=== PATIENT | male | born 1955 | race Caucasian/White ===

== ENCOUNTER 2020-07-05 10:14 | Outpatient (CLI) | payer OTHER, SELFPAY ==
--- NOTE | ~2020-07-05 | XR_ITS ---
XR chest 2V DATE: 07/05/2020 10:34 INDICATION: Cough TECHNIQUE: PA and lateral views COMPARISON: 06/30/2013 2 view chest FINDINGS: There is chronic mild elevation left leaf of diaphragm and chronic scarring in the left low er lung. No pulmonary infiltrate or consolidation, pleural effusion or pulmonary vascular congestion or pneumo thorax. Normal heart size. No hilar or mediastinal enlargement. IMPRESSION: Chronic scarring in the left lower lung; no active cardiopulmonary disease or significant change since 06/30/2013 Reviewed, dictated and finalized at location A.
== END 2020-07-05 10:15 | disposition home or self-care (01) ==
LOC: ANHIMG 10:17
PROVIDERS: PCP Internal Medicine; Visit Provider Internal Medicine
DX: R05 Cough (principal); R91.8 Other nonspecific abnormal finding of lung field
CPT/HCPCS: 71046

== ENCOUNTER 2020-07-19 01:58 | Emergency (ER) | payer OTHER, SELFPAY ==
--- NOTE | ~2020-07-19 | XR_ITS ---
EXAMINATION: XR hip RT 2V w AP pelvis INDICATION: Right hip pain TECHNIQUE: AP view the pelvis and two views of the right hip are obtained. COMPARISON: 10/28/2012 FINDINGS: Bone alignment is normal. There is no fracture. Unchanged mild osteoarthritis of the hips. Again noted is cystic change at the right femoral head/neck junction which could be related to femoro -acetabular impingement. The soft tissues are unremarkable. IMPRESSION: 1. No acute osseous abnormality. Reviewed, dictated and finalized at location A.
[2020-07-19 02:04] VITALS: BP 114/92; PULSE 73; RESP 18; TEMP 36.7; O2SAT 99
--- NOTE | 2020-07-19 02:12 | PC.NURSE ---
Pt presents to ED with complaints of right hip pain that onset approx one hour ago after work. Pt denies hx of, surgery, fall or injury and states he does a lot of walking and standing at work. Pain is rated 10/10 at this time and pt states he treated with 600mg ibuprofen approx one hour ago with no relief. Pt states right hip is approx one inch shorter than usual. Pt alert and oriented x4 and vitals are stable and in no obvious distress at this time. Pt resting comfortably on cart in its lowest position with call button and personal items within reach. Pt advised to press call button for assistance.
--- NOTE | 2020-07-19 02:18 | ED.EXTPRO ---
HPI - Extremity Problem General Chief complaint: Extremity Problem,Nontraumatic Stated complaint: hip pain Time Seen by Provider: 07/19/20 02:17 History of Present Illness HPI Narrative: RIght lower back and hip pain for awhile. Seen by chiropractor recently and had x-rays down. He was told that his hip had dropped. He has been taking ibuprofen without relief. He has another appointment with the chiropractor today but he says that he is not sure if he will make it. Related Data Allergies Allergy/AdvReac Type Severity Reaction Status Date / Time morphine Allergy Severe vitals Verified 07/05/20 09:36 spiked Review of Systems Review of Systems: All systems reviewed & are unremarkable except as noted in HPI and below Constitutional: Constitutional: Denies chills and Denies fever(s) Cardiovascular: Cardiovascular: Denies chest pain Respiratory: Respiratory: Denies dyspnea Gastrointestinal: Gastrointestinal: Denies nausea and Denies vomiting Musculoskeletal: Musculoskeletal: Reports no additional musculoskeletal complaints Neurologic: Denies dizziness and Denies weakness PMFSH Family History Family History Father Patient's father is Family history of lung cancer, Onset Age: 72 Other Hypertension Social History Social History Smoking status: Current every day smoker Tobacco type: cigarettes Second hand tobacco smoke exposure: No Smoking end date: 02/25/14 Alcohol intake: current Substance use: never Gender identity (if verbalized by the patient): Male Exam Const: General: no acute distress and alert Nutritional Appearance: well nourished Orientation/consciousness: patient oriented x3 HENMT: Head: normal to inspection Neck: Neck: normal visual inspection Resp: Effort & Inspection: normal respiratory effort Auscultation: clear to auscultation bilaterally Cardio: Rate: regular rate Rhythm: regular rhythm GI: GI Palp: Yes Soft to palpation, No Tenderness to palpation present (GI) and No Guarding due to palpation present (GI) Skin: General skin exam: normal color Neuro: General: patient oriented x3, moves all extremities, no focal motor deficits and CN's II-XI intact bilaterally Speech: normal speech Extrem: General: normal to inspection Other: mild tenderness over right SI joint Course Vital Signs Vital signs: Vital Signs Temperature 36.7 C 07/19/20 02:04 Pulse Rate 73 07/19/20 02:04 Respiratory Rate 18 07/19/20 02:04 Blood Pressure 114/92 H 07/19/20 02:04 Pulse Oximetry 99 07/19/20 02:04 Temperature 36.7 C 07/19/20 02:04 Pulse Rate 73 07/19/20 05:35 Respiratory Rate 20 07/19/20 05:35 Blood Pressure 130/68 07/19/20 05:35 Pulse Oximetry 98 07/19/20 05:35 MDM - Extremity (Nontraumatic) MDM Narrative Medical decision making narrative: sciatica, arthritis Imaging Data Radiologist's impression: ITS Impressions Hip/Pelvis X-Ray 07/19/20 06:53 IMPRESSION: 1. No acute osseous abnormality. Discharge Plan Discharge Clinical Impression: Hip pain, right Patient Disposition: Home, Self-Care Condition: Stable Instructions: Hip Pain (ED) Prescriptions: New cyclobenzaprine 10 mg tablet 10 mg PO TID PRN (Reason: muscle spasm) Qty: 20 RF: 0 No Action lisinopril 10 mg tablet 10 mg PO DAILY Qty: 90 RF: 3 magnesium oxide [MagOx] 400 mg (241.3 mg magnesium) tablet 400 mg PO BID Qty: 180 RF: 3 omeprazole 20 mg tablet,delayed release (DR/EC) 20 mg PO DAILY Qty: 90 RF: 3 Follow-up/Referrals: Gene Paul DO [Primary Care Provider] -
--- NOTE | 2020-07-19 02:28 | PC.NURSE ---
Pt adds that he recently had an xray of his right hip done and pcp states extremity is now shorter than its original position
[2020-07-19] MEDS: diazePAM INJ (*CRX) 10 MG/2 ML SYRINGE 5 MG IM (02:47)
--- NOTE | 2020-07-19 02:55 | PC.NURSE ---
pt states he will call a ride home since being administered narcotic and if he cannot find a ride, pt is ok with waiting the alotted time before dc. Pt resting on cart in its lowest position with call button and personal items within reach. Vitals are stable and pt in no obvious distress. Pt provided a blanket and advised to press call button for assistance.
[2020-07-19 02:58] VITALS: BP 130/72; PULSE 75; RESP 18; O2SAT 98
--- NOTE | 2020-07-19 03:40 | PC.NURSE ---
pt complains that medication did not provide any relief and is requesting pain medication. EDMD notified and states he will place orders.
[2020-07-19] MEDS: HYDROcodone/acetaminophen (*CRX) 5-325 MG TABLET 1 TAB PO (03:51)
--- NOTE | 2020-07-19 04:01 | PC.NURSE ---
Pt to and from radiology via cart and is now back in room with call button and personal items within reach. Pt advised to press call button for assistance.
[2020-07-19 04:50] VITALS: BP 119/72; PULSE 73; RESP 18; O2SAT 98
--- NOTE | 2020-07-19 04:52 | PC.NURSE ---
pt able to manipulate himself in bed without as much difficulty as he had prior to medication administration. Pt states is rated 8/10 at this time. EDMD notified.
[2020-07-19] MEDS: DEXAMETHASONE SOD PHOS INJ 4 MG/ML VIAL 10 MG IM (05:23)
[2020-07-19 05:35] VITALS: BP 130/68; PULSE 73; RESP 20; O2SAT 98
== END 2020-07-19 05:36 | disposition home or self-care (01) ==
PROVIDERS: Emergency Provider Emergency Medicine; PCP Internal Medicine
DX: M25.551 Pain in right hip (principal); F17.210 Nicotine dependence, cigarettes, uncomplicated
CPT/HCPCS: 73502; 96372; 99284; A9270; J1100; J3360

== ENCOUNTER 2021-07-16 02:14 | Emergency (ER) | payer OTHER, SELFPAY ==
--- NOTE | ~2021-07-16 | XR_ITS ---
EXAMINATION: XR chest 2V DATE: 07/16/2021 03:25 INDICATION: Cough. Right-sided chest pain. TECHNIQUE: PA and lateral views of the chest were obtained. COMPARISON: Chest radiograph dated 07/05/2020 and 12/21/2009 FINDINGS: Volume loss in the left hemidiaphragm with blunting at the left costophrenic angle and posterior sulc us. Additional chronic mild linear atelectasis/scarring at the lateral left lower lung zone. Remainde r of the lungs are clear with no other airspace opacities, pulmonary edema, pleural effusion or pneum othorax. The cardiomediastinal silhouette is normal. Mild thoracic spondylosis with no change in information assurance specialist mitchell mild anterior wedging of a couple mid thoracic vertebral bodies. IMPRESSION: 1. Chronic volume loss and atelectasis/scarring at the left lung base. No acute cardiopulmonary disea se. Reviewed, dictated and finalized at location A. IMPRESSION: 1. Chronic volume loss and atelectasis/scarring at the left lung base. No acute cardiopulmonary disease.
[2021-07-16 02:16] VITALS: BP 157/98; PULSE 86; RESP 20; TEMP 36.2; O2SAT 99
--- NOTE | 2021-07-16 02:27 | ECG_ITS ---
Measurements Intervals [place] Rate: 71 P: 46 TN: 174 QRS: -12 QRSD: 97 T: 31 QT: 365 QTc: 399 Interpretive Statements SINUS RHYTHM CONSIDER ANTERIOR INFARCT, AGE INDETERMINATE BASELINE WANDER- I, II, III, V1 ABNORMAL ECG Electronically Signed On 07-16-2021 7:55:54 CDT by Brian Burk D.O.
[2021-07-16 02:48] VITALS: PULSE 81; O2SAT 96
[2021-07-16] MEDS: SODIUM CHLORIDE 0.9% IV 500 ML 999 ML IV CONT (02:57)
--- NOTE | 2021-07-16 03:02 | ED.GENADULT ---
HPI - General Adult General Chief complaint: Unspecified Stated complaint: cough, painful breathing rt side Time Seen by Provider: 07/16/21 02:23 Source: patient History of Present Illness HPI narrative: Patient presents with right-sided chest pain. Patient ports he had cough congestion for the past few days but now he developed right-sided chest pain particularly when he coughs. Concerned maybe he is developing a lung infection so he wanted to come to the ER for further evaluation. Pain is sharp present when he coughs, no radiation. He has not noted any fevers at home also reports a sore throat and mild shortness of breath. Denies any nausea vomiting or diaphoresis denies any lightheadedness or dizziness. Related Data Allergies Allergy/AdvReac Type Severity Reaction Status Date / Time morphine Allergy Severe vitals Verified 07/16/21 02:18 spiked Review of Systems Review of Systems: CONSTITUTIONAL: Denies fever, chills, or sweats. EYES: Denies visual changes, redness, or discharge. ENT: Denies rhinorrhea, congestion, sore throat, or otalgia. CARDIOVASCULAR: Denies palpitations, or edema. RESPIRATORY: Cough and shortness of breath GASTROINTESTINAL: Denies abdominal pain, nausea, vomiting, or diarrhea. GENITOURINARY: Denies dysuria or hematuria. SKIN: Denies rash or itching. MUSCULOSKELETAL: Denies back pain, joint pain, or myalgia. NEUROLOGIC: Denies headache, numbness, dizziness, or weakness. PSYCHIATRIC: Denies anxiety or depression. All systems reviewed & are unremarkable except as noted in HPI and below PMFSH Family History Family History Father Patient's father is Family history of lung cancer, Onset Age: 72 Other Hypertension Social History Social History Smoking status: Current every day smoker Tobacco type: cigarettes Second hand tobacco smoke exposure: No Smoking end date: 02/25/14 Alcohol intake: current Substance use: never Gender identity (if verbalized by the patient): Male Exam Narrative: GENERAL: Well-appearing, well-nourished, and in no acute distress. HEAD: Normocephalic, atraumatic. EYES: PERRLA and EOMI. ENT: Nares clear, no rhinorrhea or epistaxis. Mucous membranes moist. NECK: Supple. No masses. No JVD CHEST: Clear to auscultation. No respiratory distress. Mild diffuse rhonchi HEART: Regular rate and rhythm. No murmur heard. Normal peripheral pulses. ABDOMEN: Soft, nontender, nondistended, normal active bowel sounds. EXTREMITIES: Normal range of motion. No edema. SKIN: Warm, dry, no rash. NEURO: No focal deficits. Alert and oriented x3. PSYCH: Normal mood and affect. Course Reevaluation(s) Reevaluation #1: Patient resting comfortably results and plan reviewed with patient. Patient is comfortable outpatient plan. Date: 07/16/21 Time: 03:59 Vital Signs Vital signs: Vital Signs Temperature 36.2 C L 07/16/21 02:16 Pulse Rate 86 07/16/21 02:16 Respiratory Rate 20 07/16/21 02:16 Blood Pressure 157/98 H 07/16/21 02:16 Pulse Oximetry 99 07/16/21 02:16 Temperature 36.2 C L 07/16/21 02:16 Pulse Rate 80 07/16/21 04:23 Respiratory Rate 18 07/16/21 04:23 Blood Pressure 140/77 07/16/21 04:23 Pulse Oximetry 98 07/16/21 04:23 Medical Decision Making [facility] Narrative Medical decision making narrative: H&P as above, vss, pt looks clinically well, exam with mild diffuse rhonchi, labs with patient being fluid positive otherwise clinically unremarkable, img without acute process, additional labs/img considered, symptomatic relief available as needed, on reevaluation pt continues to looks clinically well. Suspect influenza, dns severe sepsis consider dehydration, hypoxia, pneumothorax, hemothorax. plan to tx/monitor as op w/ pcm f/u findings/plan discussed with pt, pt agree/comfortable with plan, return precautions give
[2021-07-16 03:09] LABS: Basophils Percent Auto 0.6 % (0.2-1.2); Eosinophils Absolute Auto 0.1 K/mm3 (0-0.3); Eosinophils Percent Auto 2.1 % (0-4.4); Hematocrit 42.9 % (42.0-52.0); Hemoglobin 14.3 g/dL (14.0-18.0); Immature Granulocyte Absolute 0.02 K/mm3 (0.00-0.031); Immature Granulocyte Percent A 0.4 % (0-0.5); Lymphocytes Absolute Auto 0.86 K/mm3 (0.9-3.2); Lymphocytes Percent Auto 17.8 % (18.3-44.2); Mean Corpuscular HGB Conc 33.3 g/dl (32-36); Mean Corpuscular Hemoglobin 31.4 pg (26-34); Mean Corpuscular Volume 94.3 fl (80-100); Mean Platelet Volume 11.4 fl (7.4-10.4); Monocytes Absolute Auto 0.5 K/mm3 (0.1-0.6); Monocytes Percent Auto 11.2 % (2.6-8.5); Neutrophils Absolute Auto 3.3 K/mm3 (1.3-6.7); Neutrophils Percent Auto 67.9 % (45.5-73.1); Platelet Count Result 143 k/mm3 (150-375); Red Blood Count 4.55 M/mm3 (4.6-6.20); Red Cell Distribution Width 12.9 % (11.5-14.5); White Blood Count 4.8 K/mm3 (4.5-10.0)
[2021-07-16 03:13] LABS: Lactic Acid Reflex 0.5 mmol/L (0.7-2.0)
[2021-07-16 03:14] LABS: Alanine Aminotransferase 23 U/L (6-50); Albumin Level 3.6 g/dL (3.5-5.1); Alkaline Phosphatase 69 U/L (38-126); Anion Gap 6 mmol/L (8-16); Aspartate Amino Transferase 30 U/L (17-59); Bilirubin,Total 0.3 mg/dL (0.2-1.3); Blood Urea Nitrogen 11 mg/dL (9-20); Carbon Dioxide 26 mmol/L (22-30); Chloride 108 mmol/L (98-107); Estimated Glomerular Filt Rate > 60; Glucose 108 mg/dL (65-110); Potassium 3.4 mmol/L (3.4-5.0); Sodium 140 mmol/L (137-145)
[2021-07-16 03:42] LABS: Influenza A QL RT-PCR Positive (Negative); Influenza B QL RT-PCR Negative (Negative); SARS-CoV-2 RNA PCR Negative
[2021-07-16 04:23] VITALS: BP 140/77; PULSE 80; RESP 18; O2SAT 98
== END 2021-07-16 04:26 | disposition home or self-care (01) ==
PROVIDERS: Emergency Provider Emergency Medicine; PCP Internal Medicine
DX: J11.1 Influenza due to unidentified influenza virus with other respiratory manifestations (principal); F17.200 Nicotine dependence, unspecified, uncomplicated; Z20.822 Contact with and (suspected) exposure to COVID-19
CPT/HCPCS: 36415; 71046; 80053; 83605; 85025; 87502; 93005; 96360; 99283; C9803; J7040; U0003; U0005

== ENCOUNTER 2022-11-13 12:17 | Outpatient (CLI) | payer MEDICARE, SELFPAY ==
--- NOTE | ~2022-11-13 | CT_ITS ---
CT ANGIOGRAM NECK AND HEAD History: Dizziness and giddiness. Technique: Axial noncontrast imaging of the brain was performed. Serial spiral axial images through t he head and neck were then obtained during arterial phase IV injection of 100 cc of Omnipaque 350. 3- D postprocessing and MIP images were then reconstructed on the remote workstation. Dose reduction oz hnique was used on this scan by utilizing automated exposure control and iterative reconstruction oz hnique. The dose-length product (DLP) was 1623.36 mGy-cm. CTA neck findings: Bilateral vertebral arteries are patent. Bilateral common carotid, internal carot id, external carotid arteries are patent. No large vessel occlusion. No aneurysm. No stenosis seen, d espite presence of a small mixed soft and calcified plaque at the proximal left internal carotid cooper ry. The proximal right internal carotid artery demonstrates 0% stenosis relative to the normal distal artery lumen diameter. The proximal left internal carotid artery demonstrates 0% stenosis relative t o the normal distal artery lumen diameter. CTA head findings: Distal vertebral arteries, basilar artery, and posterior cerebral arteries are pat ent. Right posterior cerebral artery is predominantly supplied via right posterior communicating cooper ry. Distal internal carotid arteries, middle cerebral arteries, and anterior cerebral arteries are pa tent. No large vessel occlusion. No stenosis or aneurysm identified. Axial noncontrast imaging of the brain demonstrates no significant abnormality. There is no acute inf arct, intracranial hemorrhage, or mass lesion identified. Ventricles and subarachnoid spaces are unre markable. Woods-white differentiation is preserved. Paranasal sinuses and mastoid air cells are clear. Impression: No significant abnormality seen. Reviewed, dictated and finalized at location . Impression: No significant abnormality seen.
[2022-11-13 12:45] LABS: Estimated Glomerular Filt Rate > 60
== END 2022-11-13 12:18 | disposition home or self-care (01) ==
PROVIDERS: PCP Internal Medicine; Visit Provider Physician Assistant
DX: R42 Dizziness and giddiness (principal); R51.9 Headache, unspecified; R55 Syncope and collapse
CPT/HCPCS: 70496; 70498; Q9967

== ENCOUNTER 2023-05-03 09:44 | Outpatient (CLI) | payer MEDICARE, SELFPAY ==
[2023-05-03 10:43] LABS: Basophils Absolute Auto 0.1 K/mm3 (0.0-0.1); Eosinophils Absolute Auto 0.1 K/mm3 (0-0.3); Eosinophils Percent Auto 2.3 % (0-4.4); Hematocrit 48.1 % (42.0-52.0); Hemoglobin 15.7 g/dL (14.0-18.0); Immature Granulocyte Absolute 0.02 K/mm3 (0.00-0.031); Immature Granulocyte Percent A 0.3 % (0-0.5); Lymphocytes Absolute Auto 1.77 K/mm3 (0.9-3.2); Lymphocytes Percent Auto 28.5 % (18.3-44.2); Mean Corpuscular HGB Conc 32.6 g/dl (32-36); Mean Corpuscular Hemoglobin 30.6 pg (26-34); Mean Corpuscular Volume 93.8 fl (80-100); Mean Platelet Volume 11.9 fl (7.4-10.4); Monocytes Absolute Auto 0.6 K/mm3 (0.1-0.6); Monocytes Percent Auto 9.5 % (2.6-8.5); Neutrophils Absolute Auto 3.6 K/mm3 (1.3-6.7); Neutrophils Percent Auto 58.4 % (45.5-73.1); Platelet Count Result 221 k/mm3 (150-375); Red Blood Count 5.13 M/mm3 (4.6-6.20); Red Cell Distribution Width 13.2 % (11.5-14.5); White Blood Count 6.2 K/mm3 (4.5-10.0)
[2023-05-03 11:04] LABS: Alanine Aminotransferase 38 U/L (6-50); Albumin Level 4.2 g/dL (3.5-5.1); Alkaline Phosphatase 79 U/L (38-126); Anion Gap 5 mmol/L (8-16); Aspartate Amino Transferase 32 U/L (17-59); Bilirubin,Total 0.6 mg/dL (0.2-1.3); Blood Urea Nitrogen 17 mg/dL (9-20); Calcium 9.3 mg/dL (8.4-10.2); Carbon Dioxide 30 mmol/L (22-30); Chloride 104 mmol/L (98-107); Cholesterol 223 mg/dL (0-200); Estimated Glomerular Filt Rate > 60; Glucose 115 mg/dL (65-110); HDL Direct 46 mg/dL; Magnesium 2.1 mg/dL (1.6-2.3); Potassium 4.1 mmol/L (3.4-5.0); Sodium 139 mmol/L (137-145); Triglycerides 114 mg/dL (<150)
[2023-05-03 11:23] LABS: LDL Cholesterol Direct 153 mg/dL
[2023-05-03 11:46] LABS: Thyroid Stimulating Hormone 0.733 uIU/mL (0.465-4.680)
== END 2023-05-03 09:45 | disposition home or self-care (01) ==
LOC: ANHLAB 09:52
PROVIDERS: PCP Internal Medicine; Visit Provider Internal Medicine
DX: E78.00 Pure hypercholesterolemia, unspecified (principal); R73.9 Hyperglycemia, unspecified; I10 Essential (primary) hypertension; R53.83 Other fatigue; Z12.5 Encounter for screening for malignant neoplasm of prostate
CPT/HCPCS: 36415; 80053; 80061; 83735; 84153; 84443; 85025; G0103

== ENCOUNTER 2023-07-04 08:01 | Outpatient (CLI) | payer MEDICARE, SELFPAY ==
--- NOTE | ~2023-07-04 | CT_ITS ---
Non-contrast CT scan of the Abdomen and Pelvis Clinical indication: Benign prostatic hyperplasia Technique: 2.5 mm axial scans were obtained through the abdomen and pelvis without intravenous or or al contrast. Dose reduction technique was used on this scan by utilizing automated exposure control a nd iterative reconstruction technique. The dose-length product (DLP) was 710.85 mGy-cm. Findings: Images through the lung bases reveal no abnormalities. 3 mm nonobstructing right renal stone present. 11 mm nonobstructing left lower pole renal stone prese nt. There is an additional 2 mm nonobstructing left midpole renal stone. No ureteral stone or hydrone phrosis on either side. The liver, spleen, pancreas, gallbladder, and adrenals appear normal. There are atherosclerotic calci fications of the aorta. There is no evidence of bowel obstruction. Images through the pelvis were performed. There is no evidence of ascites or lymphadenopathy. Small a mount of air present in the urinary bladder. No pelvic mass seen. Prostate gland may be minimally enl arged. Impression: Nonobstructing nephrolithiasis, as above. Small amount of air in urinary bladder. Correlate for iatrogenic air. Minimally enlarged prostate gland. Reviewed, dictated and finalized at [facility]. Impression: Nonobstructing nephrolithiasis, as above. Small amount of air in urinary bladder. Correlate for iatrogenic air. Minimally enlarged prostate gland.
== END 2023-07-04 08:02 | disposition home or self-care (01) ==
LOC: ANHIMG 08:04
PROVIDERS: PCP Internal Medicine; Visit Provider Urology
DX: N40.0 Benign prostatic hyperplasia without lower urinary tract symptoms (principal)
CPT/HCPCS: 74176

== ENCOUNTER 2023-11-27 08:50 | Outpatient (CLI) | payer MEDICARE, SELFPAY ==
[2023-11-27 10:13] LABS: Free T4 Free Thyroxine 0.92 ng/mL (0.78-2.19); Thyroid Stimulating Hormone 0.929 uIU/mL (0.465-4.680)
[2023-11-27 10:48] LABS: Folic Acid 8.7 ng/mL (2.76->20)
== END 2023-11-27 08:51 | disposition home or self-care (01) ==
PROVIDERS: PCP Internal Medicine; Visit Provider Internal Medicine
DX: R41.3 Other amnesia (principal); E03.9 Hypothyroidism, unspecified
CPT/HCPCS: 36415; 82607; 82746; 84439; 84443

== ENCOUNTER 2023-12-09 13:39 | Outpatient (CLI) | payer MEDICARE, SELFPAY ==
--- NOTE | ~2023-12-09 | CT_ITS ---
EXAMINATION:CT lung screening DATE: 12/09/2023 14:07 INDICATION: Nicotine dependence, cigarettes, uncomplicated.. Current smoker with 40 pack year history . TECHNIQUE: Computed tomography (CT) of the chest was performed without intravenous contrast. Automate d exposure control and iterative reconstruction technique were employed. The dose-length product (DLP ) was 191.71 mGy-cm. COMPARISON: Chest CT 10/29/2012 FINDINGS: There is mild atelectasis in left lung. No pleural effusion. The heart size is normal. Ther e are coronary artery calcifications. There are calcifications of the aortic valve. No pericardial ef fusion. There are 2 stones in left kidney measuring up to 8 mm. There is a 3 mm stone in right kidney . There is severe cervical spondylosis and mild thoracic spondylosis. There is mild chronic anterior wedging of multiple thoracic vertebral bodies. IMPRESSION: 1. Lung-RADS category 1: Negative. Continue annual screening with noncontrast low-dose chest CT in 12 months. Reviewed, dictated and finalized at location A. IMPRESSION: 1. Lung-RADS category 1: Negative. Continue annual screening with noncontrast l ow-dose chest CT in 12 months.
== END 2023-12-09 13:40 | disposition home or self-care (01) ==
PROVIDERS: PCP Internal Medicine; Visit Provider Internal Medicine
DX: Z12.2 Encounter for screening for malignant neoplasm of respiratory organs (principal); F17.210 Nicotine dependence, cigarettes, uncomplicated
CPT/HCPCS: 71271

== ENCOUNTER 2023-12-17 09:20 | Outpatient (CLI) | payer MEDICARE, SELFPAY ==
--- NOTE | ~2023-12-17 | XR_ITS ---
EXAMINATION: XR UGI w barium swallow DATE: 12/17/2023 09:54 INDICATION: Epigastric abdominal pain. TECHNIQUE: The patient drank thick barium, gas-producing crystals, and thin barium. Fluoroscopy of th e esophagus, stomach, and proximal small bowel was performed. Fluoroscopy exposure time was 0.7 minut es. The total number of images was 244. Total dose-area product was 2.45 Gy-cm^2. COMPARISON: CT abdomen and pelvis 07/04/2023 FINDINGS: There is no mass or stricture of the esophagus. Esophageal motility is normal. There is no hiatal hernia. There was no gastroesophageal reflux with provocative maneuvers. The stomach and proxi mal small bowel show normal folding patterns. IMPRESSION: 1. Normal upper gastrointestinal series. Reviewed, dictated and finalized at location A.
== END 2023-12-17 09:21 | disposition home or self-care (01) ==
LOC: ANHIMG 09:21
PROVIDERS: PCP Internal Medicine; Visit Provider Internal Medicine
DX: R10.13 Epigastric pain (principal)
CPT/HCPCS: 74240

== ENCOUNTER 2023-12-27 09:51 | Outpatient (CLI) | payer MEDICARE, SELFPAY ==
--- NOTE | ~2023-12-27 | US_ITS ---
Limited Abdominal Sonogram: Real-time sonographic imaging of the right upper quadrant was performed. Clinical History: Right upper quadrant pain Findings: The liver appears echogenic, with no evidence of mass lesion or bile duct dilatation. Main portal vein demonstrates normal direction of flow. The gallbladder is well distended, and appears no rmal with no evidence of gallstone or wall thickening. The common bile duct measures 5 mm. The visua lized pancreas, aorta, and IVC are unremarkable. Right kidney measures 12.2 cm in length, without hyd ronephrosis or renal stone. Impression: Diffuse fatty infiltration of the liver. Reviewed, dictated and finalized at location M. Impression: Diffuse fatty infiltration of the liver.
== END 2023-12-27 09:52 | disposition home or self-care (01) ==
PROVIDERS: PCP Internal Medicine; Visit Provider Internal Medicine
DX: R10.11 Right upper quadrant pain (principal); K76.0 Fatty (change of) liver, not elsewhere classified
CPT/HCPCS: 76705

== ENCOUNTER 2024-03-27 11:27 | Outpatient (CLI) | payer MEDICARE, SELFPAY ==
--- NOTE | ~2024-03-27 | XR_ITS ---
EXAMINATION: XR shoulder RT min 2V DATE: 03/27/2024 11:50 INDICATION: Right shoulder pain. TECHNIQUE: 4 views of right shoulder were obtained. COMPARISON: None. FINDINGS: Bone alignment is normal. There is deformity of distal clavicle, which may be from prior tr auma or surgery. There is mild osteoarthritis of the acromioclavicular joint. There is heterotopic os sification at the acromioclavicular joint. Glenohumeral joint is normal. IMPRESSION: 1. Mild acromioclavicular joint osteoarthritis. Reviewed, dictated and finalized at location A. STRAIGHTENER
== END 2024-03-27 11:28 | disposition home or self-care (01) ==
PROVIDERS: PCP Internal Medicine; Visit Provider Internal Medicine
DX: M19.011 Primary osteoarthritis, right shoulder (principal)
CPT/HCPCS: 73030

== ENCOUNTER 2024-03-31 07:27 | Emergency (ER) | payer MEDICARE, SELFPAY ==
[2024-03-31] VITALS (7 sets, daily range): BP systolic 90–154; BP diastolic 47–84; PULSE 61–85; RESP 14–20; TEMP 36.6; O2SAT 98–100
--- NOTE | ~2024-03-31 | XR_ITS ---
EXAMINATION: XR chest 2V DATE: 03/31/2024 08:02 INDICATION: Chest pain. TECHNIQUE: Frontal and lateral views of the chest were obtained. COMPARISON: Chest 2 views 07/16/2021, chest CT 12/09/2023 FINDINGS: There is mild atelectasis in left lower lung zone. There is prominent extrapleural flat in the left costophrenic angles. No pleural effusion or pneumothorax. The heart size is normal. There is mild chronic anterior wedging of multiple thoracic vertebral bodies. IMPRESSION: 1. Mild atelectasis in left lower lung zone. Reviewed, dictated and finalized at location A. [employer] [facility]
--- NOTE | 2024-03-31 07:35 | ECG_ITS ---
Test Date: 2024-03-31 07:37:33 Measurements Intervals [place] Rate: 75 P: 56 RI: 176 QRS: -17 QRSD: 105 T: 59 QT: 381 QTc: 425 Interpretive Statements SINUS RHYTHM VOLTAGE CRITERIA FOR LVH BORDERLINE ST ABNORMALITY- LATERAL LEADS BASELINE ARTIFACT- I, II, III, V1-V4 BORDERLINE ECG No previous ECG available for comparison Electronically Signed On 03-31-2024 07:52:50 REEL SLITTER by Brian Burk D.O.
[2024-03-31 07:53] LABS: Basophils Percent Auto 0.4 % (0.2-1.2); Eosinophils Percent Auto 0.4 % (0-4.4); Hematocrit 45.8 % (42.0-52.0); Hemoglobin 15.9 g/dL (14.0-18.0); Immature Granulocyte Absolute 0.08 K/mm3 (0.00-0.031); Immature Granulocyte Percent A 0.8 % (0-0.5); Lymphocytes Absolute Auto 3.06 K/mm3 (0.9-3.2); Lymphocytes Percent Auto 32.2 % (18.3-44.2); Mean Corpuscular HGB Conc 34.7 g/dl (32-36); Mean Corpuscular Hemoglobin 31.4 pg (26-34); Mean Corpuscular Volume 90.5 fl (80-100); Monocytes Absolute Auto 0.8 K/mm3 (0.1-0.6); Neutrophils Absolute Auto 5.5 K/mm3 (1.3-6.7); Neutrophils Percent Auto 58.2 % (45.5-73.1); Platelet Count Result 220 k/mm3 (150-375); Red Blood Count 5.06 M/mm3 (4.6-6.20); Red Cell Distribution Width 12.7 % (11.5-14.5); White Blood Count 9.5 K/mm3 (4.5-10.0)
[2024-03-31 08:12] LABS: Alanine Aminotransferase 24 U/L (6-50); Albumin Level 3.9 g/dL (3.5-5.1); Alkaline Phosphatase 100 U/L (38-126); Anion Gap 7 mmol/L (4-12); Aspartate Amino Transferase 19 U/L (17-59); Bilirubin,Total 0.5 mg/dL (0.2-1.3); Blood Urea Nitrogen 21 mg/dL (9-20); Calcium 9.2 mg/dL (8.4-10.2); Carbon Dioxide 27 mmol/L (22-30); Chloride 105 mmol/L (98-107); Estimated CRCL calculation 95 ml/min; Estimated Glomerular Filt Rate > 60; Glucose 117 mg/dL (65-110); Lipase 76 U/L (23-300); Potassium 3.4 mmol/L (3.4-5.0); Sodium 139 mmol/L (137-145)
[2024-03-31] MEDS: ASPIRIN 81 MG CHEWABLE TABLET 324 MG PO (08:22)
[2024-03-31 08:23] LABS: Troponin I < 0.012 ng/mL (0.000-0.034)
[2024-03-31] MEDS: NITROGLYCERIN SL 0.4 MG TABLET SUBLINGUAL (08:23)
[2024-03-31 08:31] LABS: INR 0.9; Prothrombin Time 12.9 Seconds (11.1-14.7)
[2024-03-31 08:32] LABS: Partial Thromboplastin Time 26.2 Seconds (22.3-36.8)
--- NOTE | 2024-03-31 08:34 | PC.NURSE ---
gave pt a total of 2, 0.4mg tablets of nitroglycerin. pt's bp 90/47 after the 2nd tablet. withheld 3rd tablet. pt reports it did not help with chest pain. made aware.
[2024-03-31] MEDS: SODIUM CHLORIDE 0.9% IV 1,000 ML 999 ML IV CONT (08:42)
[2024-03-31] MEDS: fentaNYL CITRATE INJ (*CRX) 100 MCG/2 ML VIAL 50 MCG IV PUSH (09:03)
[2024-03-31 09:27] LABS: D Dimer < 0.27 ug/mL (<0.48)
--- NOTE | 2024-03-31 10:29 | ECG_ITS ---
Test Date: 2024-03-31 10:50:02 Measurements Intervals [place] Rate: 58 P: 52 MD: 181 QRS: -8 QRSD: 113 T: 35 QT: 425 QTc: 418 Interpretive Statements SINUS BRADYCARDIA VOLTAGE CRITERIA FOR LVH CANNOT R/O SEPTAL INFARCT, AGE INDETERMINATE ABNORMAL ECG Compared to ECG 03/31/2024 07:37:33 HEART RATE HAS DECREASED Electronically Signed On 03-31-2024 10:56:31 LOSS PREVENTION AGENT by Brian Burk D.O.
--- NOTE | 2024-03-31 11:55 | PC.NURSE ---
Lab called by CIRO Reed to add on 3 hour troponin to blood tube sent down at 3 hour richard.
[2024-03-31 12:18] LABS: Troponin I < 0.012 ng/mL (0.000-0.034)
--- NOTE | 2024-03-31 12:34 | ED_ITS ---
HPI - Chest Pain General Chief Complaint: Chest Pain Stated Complaint: chest pain Time Seen by Provider: 03/31/24 08:11 Source: patient Mode of arrival: ambulatory Limitations: no limitations History of Present Illness HPI narrative: 68-year-old with a history of hypertension no other complaints of chest pain which started yesterday. Patient states that pain is mostly in the mid chest area nonradiating. Denies any shortness of breath, nausea or diaphoresis with the pain. No previous history of CAD. Patient states if he puts his hand on his chest he feels better patient states that he had a stress test done several years ago which was normal today complaint: chest pain Onset (ago): day(s) (1) Timing of current episode: constant Onset: during rest Pain location: substernal Pain radiation: none Severity: moderate Quality: aching and heaviness Relieving factors: nothing Exacerbating factors: nothing Treatment prior to arrival: none Risk Factors Coronary artery disease risk factors: hypertension Thoracic aortic dissection risk factors: none Related Data Allergies Allergy/AdvReac Type Severity Reaction Status Date / Time morphine Allergy Severe vitals Verified 03/31/24 07:39 spiked Review of Systems 2 Review of Systems: All systems reviewed & are unremarkable except as noted in HPI and below Constitutional: Constitutional: Reports no additional constitutional complaints Eyes: Eyes: Reports no additional eye complaints ENT: Reports system reviewed and no additional complaints, except as documented Cardiovascular: Cardiovascular: Reports as per HPI Respiratory: Respiratory: Reports no additional respiratory complaints Gastrointestinal: Gastrointestinal: Reports no additional gastrointestinal complaints Musculoskeletal: Musculoskeletal: Reports no additional musculoskeletal complaints [facility] Family History Family History Father Patient's father is Family history of lung cancer, Onset Age: 72 Other Hypertension Social History Social History Smoking status: Current every day smoker Tobacco type: cigarettes Second hand tobacco smoke exposure: No Smoking end date: 02/25/14 Alcohol intake: current Substance use: never Current Housing: Decline to Answer Concerned About Future Housing: Decline to Answer Difficulty Paying Gas/Electric Bills: Decline to Answer Difficulty Paying for Meds: Decline to Answer Currently Unemployed: Decline to Answer Education: Decline to Answer Difficulty w/ Childcare or Family Care: Decline to Answer Gender identity (if verbalized by the patient): Male Exam 2 Narrative: GENERAL: Well-appearing, well-nourished, and in no acute distress. HEAD: Normocephalic, atraumatic. EYES: PERRLA and EOMI. ENT: Nares clear, no rhinorrhea or epistaxis. Mucous membranes moist. NECK: Supple. CHEST: Clear to auscultation. No respiratory distress. HEART: Regular rate and rhythm. No murmur heard. Normal peripheral pulses. ABDOMEN: Soft, nontender, nondistended, normal active bowel sounds. EXTREMITIES: Normal range of motion. No edema. SKIN: Warm, dry, no rash. NEURO: No focal deficits. Alert and oriented x3. PSYCH: Normal mood and affect. Course Course Emergency Course: Patient had no relief with sublingual nitro. I did give him IV final which is the pain of. He remained pain-free mom while he was here in the ER. I did inform him about his lab work, EKG findings. Discussed with his primary doctor will schedule outpatient stress test Vital Signs Vital signs: Vital Signs Temperature 36.6 C 03/31/24 07:32 Pulse Rate 85 03/31/24 07:32 Respiratory Rate 20 03/31/24 07:32 Blood Pressure 154/84 H 03/31/24 07:32 Pulse Oximetry 100 03/31/24 07:32 Oxygen Delivery Room Air 03/31/24 07:32 Temperature 36.6 C 03/31/24 07:32 Pulse Rate 62 03/31/24 11:00 Respiratory Rate 14 03/31/24 11:00 Blood Pressure 122/75 03/31/24 11:00 Pulse Oximetry 100 03/31/24 11:00 Oxygen Delivery Room Air 03/31/24 11:15 MDM - Chest Pain Differential Diagnosis Differential diagnosis: Likely stable angina, unstable angina pectoris, atypical chest pain and costochondritis Medical Records Data Attestation: I reviewed the patient's medical records. Lab Data Attestation: I reviewed the patient's lab results. 03/31/24 07:46 03/31/24 07:46 Labs: Lab Results 03/31/24 03/31/24 03/31/24 Range/Units 07:46 08:53 10:24 WBC 9.5 (4.5-10.0) K/mm3 RBC 5.06 (4.6-6.20) M/mm3 Hgb 15.9 (14.0-18.0) g/dL Hct 45.8 (42.0-52.0) % MCV 90.5 (80-100) fl MCH 31.4 (26-34) pg MCHC 34.7 (32-36) g/dl RDW 12.7 (11.5-14.5) % Plt Count 220 (150-375) k/mm3 MPV 11.0 H (7.4-10.4) fl Immature Gran % (Auto) 0.8 H (0-0.5) % Neut % (Auto) 58.2 (45.5-73.1) % Lymph % (Auto) 32.2 (18.3-44.2) % [place] % (Auto) 8.0 (2.6-8.5) % Eos % (Auto) 0.4 (0-4.4) % Baso % (Auto) 0.4 (0.2-1.2) % Lymph # (Auto) 3.06 (0.9-3.2) K/mm3 [place] # (Auto) 0.8 H (0.1-0.6) K/mm3 Eos # (Auto) 0.0 (0-0.3) K/mm3 Baso # (Auto) 0.0 (0.0-0.1) K/mm3 Abs Immat Gran (auto) 0.08 H (0.00-0.031) K/mm3 Absolute Neuts (auto) 5.5 (1.3-6.7) K/mm3 Absolute Nucleated RBC 0.000 (0.0-0.012) K/mm3 Nucleated RBC % 0.0 (0.0-0.2) % PT 12.9 (11.1-14.7) Seconds INR 0.9 APTT 26.2 (22.3-36.8) Seconds D-Dimer < 0.27 (<0.48) ug/mL Sodium 139 (137-145) mmol/L Potassium 3.4 (3.4-5.0) mmol/L Chloride 105 (98-107) mmol/L Carbon Dioxide 27 (22-30) mmol/L Anion Gap 7 (4-12) mmol/L BUN 21 H (9-20) mg/dL Creatinine 0.67 L (0.7-1.3) mg/dL Estim Creat Clear Calc 95 ml/min Estimated GFR > 60 (59 - ) Glucose 117 H (65-110) mg/dL Calcium 9.2 (8.4-10.2) mg/dL Total Bilirubin 0.5 (0.2-1.3) mg/dL AST 19 (17-59) U/L ALT 24 (6-50) U/L Alkaline Phosphatase 100 (38-126) U/L Troponin I < 0.012 < 0.012 (0.000-0.034) ng/mL Total Protein 7.0 (6.3-8.2) g/dL Albumin 3.9 (3.5-5.1) g/dL Lipase 76 (23-300) U/L Imaging Data Radiologist's impression: ITS Impressions Chest X-Ray 03/31/24 08:22 IMPRESSION: 1. Mild atelectasis in left lower lung zone. ECG Data EKG #1: ECG completion date: 03/31/24 ECG completion time: 07:37 EKG Interpretation: normal rate (75), sinus rhythm, no ectopy, no ST changes, NL axis and no acute changes EKG #2: ECG completion date: 03/31/24 ECG completion time: 10:50 EKG Interpretation: bradycardia (58), sinus rhythm, no ectopy, no ST changes, NL axis and no acute changes Discharge Plan Discharge Clinical Impression: Chest pain Qualifiers: Chest pain type: unspecified Qualified Code(s): R07.9 - Chest pain, unspecified Patient Disposition: Home, Self-Care Condition: Stable Instructions: Chest Pain (ED) Additional Instructions: Continue home medication recommended to follow up his primary doctor schedule outpatient stress test Patient Language: Pashto Prescriptions: No Action trazodone 50 mg tablet 50 mg PO QHS Qty: 30 2RF prednisone 5 mg tablet 5 mg PO DIRECTED Qty: 36 0RF Rx Instructions: Eight po today, decreasing dose by one tablet daily until gone. amlodipine 10 mg tablet 10 mg PO DAILY Qty: 90 2RF omeprazole 20 mg tablet,delayed release (DR/EC) 20 mg PO DAILY Qty: 90 1RF lisinopril 40 mg tablet 40 mg PO DAILY Qty: 90 3RF Follow-up/Referrals: Antony Padilla DO [Primary Care Provider] - Time of Disposition: 12:48
== END 2024-03-31 12:59 | disposition home or self-care (01) ==
PROVIDERS: Emergency Provider Family Medicine; PCP Internal Medicine
DX: R07.9 Chest pain, unspecified (principal); R00.1 Bradycardia, unspecified; F17.210 Nicotine dependence, cigarettes, uncomplicated
CPT/HCPCS: 36415; 71046; 80053; 83690; 84484; 85025; 85380; 85610; 85730; 93005; 96361; 96374; 99284; A9270; J3010; J7030

== ENCOUNTER 2024-11-24 14:27 | Outpatient (CLI) | payer MEDICARE, SELFPAY ==
[2024-11-24 15:58] LABS: Alanine Aminotransferase 30 U/L (6-50); Albumin Level 4.2 g/dL (3.5-5.1); Alkaline Phosphatase 75 U/L (38-126); Anion Gap 6 mmol/L (4-12); Aspartate Amino Transferase 28 U/L (17-59); Bilirubin,Total 0.3 mg/dL (0.2-1.3); Blood Urea Nitrogen 13 mg/dL (9-20); Calcium 9.4 mg/dL (8.4-10.2); Carbon Dioxide 27 mmol/L (22-30); Chloride 106 mmol/L (98-107); Cholesterol 217 mg/dL (0-200); Estimated Glomerular Filt Rate > 60; Glucose 103 mg/dL (65-110); HDL Direct 39 mg/dL; Potassium 4.3 mmol/L (3.4-5.0); Sodium 139 mmol/L (137-145); Total Protein 7.5 g/dL (6.3-8.2); Triglycerides 273 mg/dL (<150)
[2024-11-24 16:28] LABS: Prostate Specific Antigen 0.8 ng/mL (< OR = 4.0)
[2024-11-24 16:35] LABS: Hemoglobin A1C 6.4 % (<5.7)
== END 2024-11-24 14:28 | disposition home or self-care (01) ==
LOC: ANHLAB 14:29
PROVIDERS: PCP Internal Medicine; Visit Provider Internal Medicine
DX: E78.5 Hyperlipidemia, unspecified (principal); I10 Essential (primary) hypertension; R73.9 Hyperglycemia, unspecified; Z12.5 Encounter for screening for malignant neoplasm of prostate
CPT/HCPCS: 36415; 80053; 80061; 83036; 84153; G0103

== ENCOUNTER 2024-12-10 09:47 | Outpatient (CLI) | payer MEDICARE, SELFPAY ==
--- NOTE | ~2024-12-10 | XR_ITS ---
EXAMINATION: XR hip BI 2V w AP pelvis, 12/10/2024 10:00 CDT HISTORY: M25.551 - Pain in right hip COMPARISON: No comparisons available. Findings: No acute fracture or malalignment. Moderate degenerative changes Soft tissues unremarkable. Impression: No acute fracture or malalignment. Reviewed, dictated and finalized at location P. Impression: No acute fracture or malalignment.
--- NOTE | ~2024-12-10 | XR_ITS ---
XR lumbar spine 2-3V Indication: M54.9 - Dorsalgia, unspecified Comparison: None Findings: Mild loss of vertebral height throughout. Mild loss of disc height throughout. Soft tissues Left kidney lower pole renal calculus 1.1 x 1 cm. Impression: No acute abnormality. Reviewed, dictated and finalized at location P. Impression: No acute abnormality.
== END 2024-12-10 09:48 | disposition home or self-care (01) ==
PROVIDERS: PCP Internal Medicine; Visit Provider Internal Medicine
DX: M25.551 Pain in right hip (principal); M25.552 Pain in left hip; M54.9 Dorsalgia, unspecified
CPT/HCPCS: 72100; 73521

== ENCOUNTER 2024-12-14 15:42 | Outpatient (CLI) | payer MEDICARE, SELFPAY ==
--- NOTE | ~2024-12-14 | CT_ITS ---
CT lung screening INDICATION: Tobacco use. COMPARISON: None. TECHNIQUE: CT examination of the entire thorax without contrast was performed using low dose technique. Thin section axial, sagittal and coronal images were included to increase sensitivity for small lung nodules. FINDINGS: PULMONARY NODULES: No suspicious noncalcified pulmonary nodules seen. OTHER PULMONARY FINDINGS: No significant nonnodular pleural or parenchymal abnormality is noted. No emphysematous changes are present. No pathologically enlarged lymph nodes are present. Normal heart size. Mild coronary artery calcifications are noted in this nongated CT. UPPER ABDOMEN AND PERIPHERAL SOFT TISSUE: Limited views of the upper abdomen and peripheral soft tissue demonstrated no abnormalities. OSSEOUS STRUCTURES: Bone window shows no aggressive blastic or lytic lesions. IMPRESSION: 1. Lung-RADS category 1: No nodules or definitely benign nodules. Recommendations: 1 or 2: Annual screening with low-dose CT in 12 months. 2. No emphysematous changes are present. All CT scans at this facility are performed using low dose modulation techniques as appropriate to perform exam including the following: automated exposure control; use of iterative reconstruction technique; adjustment of the mA and/or kV according to patient size (this includes techniques or standardized protocols for targeted exams where dose is matched to indication/reason for exam). Reviewed, dictated and finalized at location S. IMPRESSION: 1. Lung-RADS category 1: No nodules or definitely benign nodules. Recommendations: 1 or 2: Annual screening with low-dose CT in 12 months. 2. No emphysematous changes are present. All CT scans at this facility are performed using low dose modulation techniqu es as appropriate to perform exam including the following: automated exposure c ontrol; use of iterative reconstruction technique; adjustment of the mA and/or kV according to patient size (this includes techniques or standardized protocol s for targeted exams where dose is matched to indication/reason for exam).
== END 2024-12-14 15:43 | disposition home or self-care (01) ==
PROVIDERS: PCP Internal Medicine; Visit Provider Internal Medicine
DX: Z12.2 Encounter for screening for malignant neoplasm of respiratory organs (principal); F17.210 Nicotine dependence, cigarettes, uncomplicated
CPT/HCPCS: 71271